=== PATIENT | female | born 1955 | race Caucasian/White ===

== ENCOUNTER 2016-08-14 12:57 | Outpatient (CLI) | payer BC | END 2016-08-14 12:58 | DX: R73.01 Impaired fasting glucose (principal); R74.8 Abnormal levels of other serum enzymes; K85.90 Acute pancreatitis without necrosis or infection, unspecified; I10 Essential (primary) hypertension; E03.9 Hypothyroidism, unspecified; E78.5 Hyperlipidemia, unspecified ==

== ENCOUNTER 2017-04-17 13:53 | Outpatient (CLI) | payer BC ==
[2017-04-17 14:20] LABS: BASOPHILS % (AUTO) 0.2 %; EOSINOPHILS # (AUTO) 0.2 10^3/uL (0.0-0.7); EOSINOPHILS % (AUTO) 1.1 %; HCT - HEMATOCRIT 42.2 % (37.0-47.0); HGB - HEMOGLOBIN 14.2 g/dL (12.0-16.0); LYMPHOCYTES # (AUTO) 3.3 10^3/uL (1.5-3.5); LYMPHOCYTES % (AUTO) 22.6 %; MEAN CORPUSCULAR HEMOGLOBIN 35.2 pg (27.0-31.0); MEAN CORPUSCULAR HGB CONC 33.6 g/dL (32.0-36.0); MEAN CORPUSCULAR VOLUME 104.7 fL (81.0-99.0); MEAN PLATELET VOLUME 7.7 fL (7.9-10.8); MONOCYTES % (AUTO) 6.8 %; NEUTROPHILS # (AUTO) 10.1 10^3/uL (1.5-6.6); NEUTROPHILS % (AUTO) 69.3 %; RED BLOOD COUNT 4.03 10^6/uL (4.20-5.40); RED CELL DISTRIBUTION WIDTH 13.6 % (12.0-15.0); UNCORRECTED WHITE BLOOD COUNT 14.5 x10^3/uL; WHITE BLOOD COUNT 14.5 x10^3/uL (4.8-10.8)
[2017-04-17 14:31] LABS: ALBUMIN/GLOBULIN RATIO 1.1 (1.0-2.2); BILIRUBIN,TOTAL 0.7 mg/dL (0.2-1.0); CALCIUM 9.1 mg/dL (8.5-10.3); CREATININE 0.7 mg/dL (0.4-1.0); TOTAL PROTEIN 7.5 g/dL (6.7-8.2)
== END 2017-04-17 13:54 | disposition home or self-care (01) ==
LOC: LAB 13:53
PROVIDERS: ATTEND Physician Assistant Medical
DX: J18.9 Pneumonia, unspecified organism (principal); R53.83 Other fatigue
CPT/HCPCS: 36415; 80053; 85025

== ENCOUNTER 2017-04-17 14:13 | Outpatient (CLI) | payer BC ==
--- NOTE | 2017-04-17 16:28 | XRAY Report ---
TWO-VIEW CHEST: 04/17/2017 CLINICAL INDICATION: Pneumonia. FINDINGS: Frontal and lateral views of the chest demonstrate a normal cardiac silhouette. The lungs are clear. No effusion or pneumothorax is present. IMPRESSION: NORMAL CHEST. JOB #: [id number] EXT JOB #:[id number]
== END 2017-04-17 14:14 | disposition home or self-care (01) ==
LOC: DI 14:13
PROVIDERS: ATTEND Physician Assistant Medical
DX: J18.9 Pneumonia, unspecified organism (principal); R53.83 Other fatigue
CPT/HCPCS: 36415; 71020; 80053; 85025

== ENCOUNTER 2017-05-28 09:16 | Outpatient (CLI) | payer BC ==
--- NOTE | 2017-05-28 16:08 | Mammography Report ---
DIGITAL DIAGNOSTIC BILATERAL MAMMOGRAM: 05/28/2017 CLINICAL INDICATION: Followup benign biopsy. COMPARISON: 07/26/2015, 07/18/2015, 06/12/2015, 05/13/2013, 11/16/2010, 09/11/2009. TECHNIQUE: Bilateral CC and MLO views, left true lateral view, right laterally exaggerated craniocaud al views. FINDINGS: The breasts demonstrate heterogeneously dense fibroglandular parenchyma bilaterally. Coars e, typically benign calcifications are present. Postbiopsy changes in the left inferior breast are st able. No suspicious masses, clustered microcalcifications, or regions of architectural distortion are identified. IMPRESSION: BENIGN FINDINGS. RECOMMENDATION: ROUTINE ANNUAL SCREENING UNLESS OTHERWISE CLINICALLY INDICATED. BIRADS CATEGORY 2-BENIGN FINDINGS. STANDARD QUALIFYING STATEMENTS 1. This examination was reviewed with the aid of Computer-Aided Detection (CAD). 2. A negative or benign imaging report should not delay biopsy if clinically suspicious findings are present. Consider surgical consultation if warranted. More than 5% of cancers are not identified by i maging. 3. Dense breasts may obscure an underlying neoplasm. JOB #: [id number] EXT JOB #:[id number]
== END 2017-05-28 09:17 | disposition home or self-care (01) ==
LOC: DI 09:16
PROVIDERS: ATTEND Family Medicine
DX: R92.8 Other abnormal and inconclusive findings on diagnostic imaging of breast (principal)
CPT/HCPCS: 77066

== ENCOUNTER 2017-09-24 20:18 | Emergency (ER) | payer BC ==
[2017-09-24 20:32] VITALS: BP 116/89
== END 2017-09-24 21:22 | disposition left against medical advice (07) ==
LOC: ED 20:18
DX: Z53.21 Procedure and treatment not carried out due to patient leaving prior to being seen by health care provider (principal)

== ENCOUNTER 2017-10-27 12:32 | Outpatient (CLI) | payer BC ==
--- NOTE | 2017-10-27 14:08 | MRI Report ---
EXAM: MRI LUMBAR SPINE WITHOUT CONTRAST EXAM DATE: 10/27/2017 01:13 PM. CLINICAL HISTORY: Lumbar radiculopathy. Severe pain radiating from the low back down the outside of t he left leg. COMPARISON: MRI of the lumbar spine 03/28/2011. TECHNIQUE: Multiplanar, multisequence T1-weighted and fluid-sensitive sequences of the lumbar spine f rom T12 to S1 without contrast. Other: None. FINDINGS: Spinal Cord: The conus terminates at L1. The conus medullaris and cauda equina are unremarkable. The spinal canal is adequate. Alignment: Mild dextrorotatory curvature of the lumbar spine is seen. No spondylolisthesis. Bone Marrow: Five apa-hea-xxihyun lumbar vertebral bodies are assumed. No gross fractures or bone les ions. No bone marrow edema. An oval 14 mm focus of signal abnormality is seen in the right S1 vertebr a at the junction of the body and ala. This demonstrates isointense T1 with hyperintense T2 and STIR signal. This previously measured approximately 10 mm in size. Disk Levels/Facets: T12-L1: Unremarkable on sagittal series. L1-L2: Unremarkable. Minimal anterior bulge of disk/osteophyte complex is seen. L2-L3: Unremarkable. Mild lateral and ventral bulge of disk/osteophyte complex is seen greater to the right. L3-L4: Mild loss of disk space height is seen. T2 hypointense disk signal is seen. Mild to moderate c ircumferential disk bulge is seen. Lobular inferior disk extrusion is seen behind the L4 superior end plate. In a left paracentral location this measures approximately 8 x 4.5 mm. In a right paracentral location this measures approximately 3 mm in size. Effacement of the thecal sac with crowding of caud a equina nerve roots is seen. Moderate canal stenosis is present. Effacement of descending L4 nerve r oots is seen. Mild right lateral recess stenosis. Marked left lateral recess stenosis. This is new co mpared to prior study. L4-L5: Minimal circumferential disk bulge. No stenosis. L5-S1: Mild central dorsal disk protrusion. No stenosis. This is unchanged. Musculature: Normal. No edema or fatty atrophy. Other: The partially visualized retroperitoneum is unremarkable. IMPRESSION: 1. Oval 14 mm focus of signal abnormality in the right aspect of the S1 vertebra at the junction of t he ala and body. This does not follow signal characteristics of a typical hemangioma. This has shown interval enlargement compared to prior MRI. Findings could represent an atypical hemangioma or more a ggressive focus of bone marrow replacement. If the patient has an oncologic history, correlation with bone scan could be considered. 2. L3-L4: Degenerative disk change. This has progressed. Circumferential disk bulge. Dorsal inferior disk herniation is seen, greater to the left. Moderate canal stenosis. Right mild lateral recess sten osis. Left marked lateral recess stenosis. Comment: The following findings are so common in adults without low back pain that while we report th eir presence, they must be interpreted with caution and in the context of the clinical situation. (Re tarun Watt et al, Spine 2001) Prevalence of findings in patients without low back pain: Disk degeneration (any evidence): 92% Disk desiccation/T2 signal loss: 83% Disk height loss: 56% Disk bulge: 64% Disk protrusion: 32% Annular tear/high intensity zone: 38% [facility] Referring Provider Line: [phone] SITE ID: [id number]
== END 2017-10-27 12:33 | disposition home or self-care (01) ==
LOC: DI 12:32
PROVIDERS: ATTEND Family Medicine
DX: M54.16 Radiculopathy, lumbar region (principal)
CPT/HCPCS: 72148

== ENCOUNTER 2018-02-28 13:53 | Outpatient (CLI) | payer BC, OTHER ==
--- NOTE | 2018-02-28 14:52 | XRAY Report ---
Reason: ACUTE LOW BACK PAIN S/P FALL Procedure Date: 02/28/2018 Accession Number: [id number] / [id number] Procedure: XR - Lumbar Spine 2 View CPT Code: FULL RESULT: EXAM: LUMBOSACRAL SPINE RADIOGRAPHY EXAM DATE: 02/28/2018 02:18 PM. CLINICAL HISTORY: ACUTE LOW BACK PAIN S/P FALL. COMPARISONS: LUMBAR SPINE 2 VIEW 07/23/2017 9:52 AM. TECHNIQUE: 2 views. FINDINGS: Alignment: There is scoliotic curvature of the lumbar spine apex to the right of 10 degrees between L2 and L4. Bones: Five dgn-ohv-bbcglcu lumbar vertebral bodies are present. No fractures or bone lesions. Disks: There is moderate disk height loss at L3-L4. There is wcqi-za-hfhdruvn disk osteophyte spurring at multiple levels. Facets: Facet joints appear in satisfactory alignment. Sacroiliac Joints: Unremarkable. Soft Tissues: There is moderately advanced atherosclerotic vascular calcification. IMPRESSION: 1. Scoliotic curvature apex to the right centered at L3-L4. Moderate disk height loss at L3-L4. No fracture. [facility]
--- NOTE | 2018-02-28 14:56 | XRAY Report ---
Reason: THORACIC REGION BACK PAIN Procedure Date: 02/28/2018 Accession Number: [id number] / [id number] Procedure: XR - Thoracic Spine 2 View CPT Code: FULL RESULT: EXAM: THORACIC SPINE RADIOGRAPHY EXAM DATE: 02/28/2018 02:18 PM. CLINICAL HISTORY: THORACIC REGION BACK PAIN. COMPARISON: None. TECHNIQUE: 2 views. FINDINGS: Alignment: No subluxation or scoliosis Bones: There is a mild compression fracture involving the anterior superior endplate of the T10 vertebral body. Other vertebral bodies appear normal. Disks: Disk height is preserved. Soft Tissues: Normal. The visualized lungs and cardiomediastinal silhouette are normal. IMPRESSION: 1. Positive for mild superior endplate compression fracture of T10. [facility]
== END 2018-02-28 13:54 | disposition home or self-care (01) ==
LOC: DI 13:53
PROVIDERS: ATTEND Family Medicine
DX: M51.36 Other intervertebral disc degeneration, lumbar region (principal); M41.86 Other forms of scoliosis, lumbar region; M48.54XA Collapsed vertebra, not elsewhere classified, thoracic region, initial encounter for fracture
CPT/HCPCS: 72070; 72100

== ENCOUNTER 2018-04-09 08:57 | Outpatient (CLI) | payer OTHER ==
--- NOTE | 2018-04-09 14:05 | MRI Report ---
Reason: OSTEOPOROSIS,WEDGE COMPRESSION FACTURE OF T9-T10 Procedure Date: 04/09/2018 Accession Number: [id number] / [id number] Procedure: MRI - Thoracic Spine W/O CPT Code: FULL RESULT: EXAM: MRI THORACIC SPINE WITHOUT CONTRAST EXAM DATE: 04/09/2018 09:57 AM. CLINICAL HISTORY: 62-year-old woman with osteoporosis and compression fracture of T9-T10. COMPARISONS: THORACIC SPINE 2 VIEW 02/28/2018 2:06 PM. TECHNIQUE: Multiplanar, multisequence T1-weighted and fluid-sensitive sequences of the thoracic spine from C7 to L1 without contrast. Other: None. FINDINGS: Spinal Canal: No signal abnormality in the visualized spinal cord. Alignment: No significant spondylolisthesis. Mild convex left scoliosis centered in the lower thoracic spine is better demonstrated on the 02/28/2018 radiographs. Bone Marrow: Compression deformity of the superior endplate of T10 is demonstrated with approximately 25% maximum height loss, consistent with compression fracture. There is diffuse edema throughout the vertebral body with mild extension into the posterior elements, consistent with inflammatory reaction to recent injury. No bony retropulsion. No widening of the facet joints or fracture plane through the posterior elements to suggest distraction injury. Bone marrow signal is otherwise normal. Hemangioma is incidentally noted in the T8 vertebral body, a benign finding. Disk spaces, central canal, and neural foramina: There is mild disk desiccation and height loss at T7-T8 and T8-T9. Mild edema is present within the T9-T10 disk space, likely inflammation associated with adjacent T10 fracture. No significant disk herniations. Central canal is widely patent throughout. No significant neural foraminal narrowing. Musculature: Edema is present along the T9-T10 interspinous ligament, likely reflecting sprain associated with compression fracture. Other: Limited evaluation of the chest and upper abdomen is unremarkable. IMPRESSION: 1. T10 compression fracture (A1 by AO Spine classification) with approximately 25% height loss. Edema is present throughout the bone marrow, consistent with recent injury. 2. Edema is present along the T9-T10 interspinous ligament, likely reflecting sprain injury associated with compression fracture. No evidence of fracture of the posterior elements or widening of the facet joints to suggest distraction injury. 3. Central canal and neural foramen are widely patent. [facility]
== END 2018-04-09 08:58 | disposition home or self-care (01) ==
LOC: DI 08:57
PROVIDERS: ATTEND Family Medicine
DX: M81.0 Age-related osteoporosis without current pathological fracture (principal); S22.070D Wedge compression fracture of T9-T10 vertebra, subsequent encounter for fracture with routine healing
CPT/HCPCS: 72146